=== PATIENT | male | born 1970 | race Caucasian/White ===

== ENCOUNTER 2018-02-06 18:37 | Emergency (ER) | payer BC ==
[~2018-02-06] VITALS: Ht 170.2 cm; Wt 82.6 kg
[~2018-02-06 18:37] MED LIST: ALBUTEROL INHAL17 GM IH; AMOXICILLIN 50500 M1 PO; AVELOX400 MG PO; PHENERGAN 25 MG25 MG PO
[2018-02-06] MEDS ORDERED: EPIPEN0.3 MG/0.1 IM (20:18)
[2018-02-06] MEDS ORDERED: PREDNISONE50 MG PO (20:18)
[2018-02-06 20:36] VITALS: BP 134/70
== END 2018-02-06 20:38 | disposition home or self-care (01) ==
LOC: M.ERS 18:37
DX: T78.40XA Allergy, unspecified, initial encounter (principal); X58.XXXA Exposure to other specified factors, initial encounter

== ENCOUNTER 2018-12-06 22:12 | Inpatient (IN) | payer BC ==
[~2018-12-06] VITALS: Ht 170.2 cm; Wt 87.1 kg
[~2018-12-06 22:12] MED LIST changes: +EPIPEN0.3 MG/0.1 IM; +PREDNISONE50 MG PO
[2018-12-06] MEDS ORDERED: LIPITOR80 MG PO (22:19)
[2018-12-06] MEDS ORDERED: VALTREX 500 MG500 MG PO (22:19)
[2018-12-07 00:28] LABS: ABSOLUTE EOSINOPHILS 0.1 thou/uL (0.0-0.7); ABSOLUTE MONOCYTES 0.5 thou/uL (0.0-1.2); ABSOLUTE NEUTROPHILS 8.2 thou/uL (1.6-8.1); BASOPHILS 0.4 %; EOSINOPHILS 0.5 %; HEMATOCRIT 46.7 % (42.0-52.0); HEMOGLOBIN 16.2 gm/dL (14.0-18.0); LYMPHOCYTES 18.7 %; MCH 32.5 pg (26.0-34.0); MCHC 34.6 g/dL (28.0-37.0); MCV 93.9 fL (80.0-100.0); MONOCYTES 4.3 %; MPV 6.7 fl. (7.2-11.1); NUCLEATED RBCS 0 /100WBC; PLATELET COUNT* 229 thou/uL (150-400); POLYS 76.1 %; RBC 4.97 mil/uL (4.50-6.00); RDW-CV 12.5 % (10.5-14.5); WBC 10.8 thou/uL (4.0-11.0)
[2018-12-07 00:38] LABS: ALBUMIN 3.9 g/dL (3.4-5.0); CALCIUM 8.7 mg/dL (8.5-10.1); POTASSIUM 3.5 mmol/L (3.5-5.1); TOTAL BILIRUBIN 0.7 mg/dL (<0.1-1.0); TOTAL PROTEIN 7.2 g/dL (6.4-8.2)
[2018-12-07 00:45] VITALS: BP 133/84
[2018-12-07 00:59] VITALS: BP 127/73
[2018-12-07 08:15] VITALS: BP 131/87
[2018-12-07 10:57] VITALS: BP 131/87
--- NOTE | 2018-12-07 17:05 | EKG ---
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 SERRANO : 1970 Requested By: Iza Sorto Order Number: [id number] MD: Ed Hendrix Measurements Intervals [place] Rate: 60 P: 1 IN: 148 QRS: -20 QRSD: 86 T: -9 QT: 408 QTc: 408 Interpretive Statements Sinus rhythm Borderline left axis deviation Low voltage, precordial leads Borderline T abnormalities, inferior leads No previous ECG available for comparison Electronically Signed On 12-07-2018 17:05:34 CDT by Ed Hendrix [email or web address] <ELECTRONICALLY SIGNED> By: Ed Hendrix MD, [facility] 12/07/18 1705 0029 0029 Ed Hendrix MD, [facility] /EPI
[2018-12-07 17:10] VITALS: BP 151/86
[2018-12-07 21:30] VITALS: BP 125/75
[2018-12-08] VITALS (7 sets, daily range): BP systolic 118–155; BP diastolic 77–94
[2018-12-08 05:07] LABS: CALCIUM 8.3 mg/dL (8.5-10.1); MAGNESIUM 2.5 mg/dL (1.8-2.4); POTASSIUM 4.3 mmol/L (3.5-5.1)
[2018-12-08 05:28] LABS: ABSOLUTE LYMPHOCYTES 1.8 thou/uL (0.8-5.3); ABSOLUTE MONOCYTES 1.2 thou/uL (0.0-1.2); BASOPHILS 0.1 %; LYMPHOCYTES 13.1 %; MCH 32.9 pg (26.0-34.0); MCV 94.2 fL (80.0-100.0); MONOCYTES 8.3 %; MPV 7.2 fl. (7.2-11.1); NUCLEATED RBCS 0 /100WBC; PLATELET COUNT* 219 thou/uL (150-400); POLYS 78.5 %; RBC 4.25 mil/uL (4.50-6.00); RDW-CV 12.6 % (10.5-14.5); WBC 14.1 thou/uL (4.0-11.0)
[2018-12-08] MEDS ORDERED: SENNA PLUS TAB1 EACH PO (14:09)
[2018-12-08] MEDS ORDERED: ELIQUIS2.5 MG PO (14:40)
[2018-12-08] MEDS ORDERED: OXYCODONE HCL 55 MG PO (14:40)
[2018-12-08] MEDS ORDERED: NORCO 5-325 TA1 EACH PO (14:41)
--- NOTE | 2018-12-09 12:50 | OP ---
[address] [address] OPERATIVE REPORT Name: REGINA REEVES Nabila Room: [address]#: [id number] Admission: 12/06/18 Attend Phys: Neida Du Discharge: 12/08/18 Date of : 68 Report #: [id number] THIS REPORT FOR: //name// CC: Medardo Hunter DICTATED BY: Davidson Mar DO DATE OF SERVICE: 12/07/2018 PREOPERATIVE DIAGNOSES: Left closed distal third tibia fracture, proximal fibula fracture, Maisonneuve. POSTOPERATIVE DIAGNOSES: Left closed distal third tibia fracture, proximal fibula fracture, [place]. PROCEDURE PERFORMED: 1. Closed reduction and intramedullary nail of left tibia. 2. Physician directed fluoroscopy less than 1 hour. SURGEON: Jose Miguel Palomares DO. DIRECTOR OF PHYSICIAN PRACTICES: 1. Davidson Mar DO. 2. Baltazar Toth DO. ANESTHESIA: General and local. ESTIMATED BLOOD LOSS: 75 mL. SPECIMENS: None. COMPLICATIONS: None. ANTIBIOTICS: 2 grams Ancef IV piggyback. DISPOSITION: Stable to PACU. INDICATIONS FOR PROCEDURE: The patient is a pleasant 48-year-old male who sustained a ground level fall twisting type injury on 12/06/2018 with pain and deformity of the left lower extremity. He was seen in the Emergency Department. X-rays confirmed a distal third spiral tibia fracture with associated proximal fibula fracture that was Maisonneuve variant. Risks, benefits, complications, alternatives and indications were discussed with the patient including but are not limited to risk of infection, need for repeat surgery, nonunion, malunion, risk to nerves and vessels, continued pain, stiffness, DVT, pulmonary embolism, [address] [address] OPERATIVE REPORT Name: REGINA REEVES Room: [address]#: [id number] Admission: 12/06/18 Attend Phys: Neida Du Discharge: 12/08/18 Date of : 68 Report #: [id number] as well as other imponderables. He voiced understanding and wished to proceed. DESCRIPTION OF PROCEDURE: The patient was seen in the preoperative holding area. Correct operative site was marked. Verbal and written consents were obtained. He was transferred to the operative suite and placed supine on the operative table, given benefit of general anesthesia by the anesthesia team. Left lower extremity was then prepped and draped in normal sterile fashion. Timeout was performed and all those in attendance were agreed on correct operative site, procedure to be performed. A #10 blade scalpel was used to make an incision in the superior pole of the patella approximately 6 cm in length. This was taken down to the level of the quadriceps tendon and then a new #10 blade scalpel was used to make a longitudinal incision in the quadriceps tendon. We then inserted the intra-articular guide appropriately and our starting pin position was verified with fluoroscopy. Starting pin was passed followed by opening reamer. We then passed our ball-tipped guidewire and performed a closed reduction of the fracture and then reamed 0.5 mm intervals starting from 9 mm to 12 mm. We appropriately measured the length and size of our nail and then a [place] tibial nail size 10 mm x 330 mm was placed and malleted into place in the appropriate depth. We then used the proximal aiming arm to place our 2 proximal static locking screws. We then turned our attention to our distal screws and using perfect circles under the physician-directed fluoroscopy, we performed our distal locking screws. A #15 blade scalpel was used to incise the skin from medial to lateral screw as well as an anterior and posterior screw and blunt dissection was taken to the level of bone with a hemostat and then these were drilled with the assistance of fluoroscopy. Appropriate depth was measured and appropriate length screws were placed and final x-rays were taken and saved to the chart. All incision sites were thoroughly irrigated with sterile saline and the aiming guide was removed from the nail. We then placed a 10 mm locking cap proximally and thoroughly irrigated the knee joint with sterile saline. The quadriceps tendon was closed using 0 Vicryl in a ygudby-dn-ywqka fashion. Skin was closed using 2-0 Vicryl in an inverted fashion, and then skin jethro were used to close all incisions. All needle and sharp counts were correct at the end of the case x 2. I attest Dr. Palomares was present throughout all critical decision making aspects of the case. POSTOPERATIVE PLAN: The patient will be toe touch weightbearing of the left lower extremity until followup in 2 weeks. He will receive DVT prophylaxis of Eliquis 2.5 mg p.o. b.i.d. as well as p.o. analgesia [place] [address] OPERATIVE REPORT Name: REGINA REEVES Room: [address] [place]#: [id number] Admission: 12/06/18 Attend Phys: Neida Du Discharge: 12/08/18 Date of : 68 Report #: [id number] receive physical therapy for crutch or walker training as needed and postoperative weight-based antibiotics. <ELECTRONICALLY SIGNED> By: Joseph Orellana DO 12/09/18 1250 1627 1840Jose Miguel Palomares DO /nt
== END 2018-12-08 16:30 | disposition home or self-care (01) | DRG 494 ==
LOC: M.ERS 22:12 → M.ORTHSURG 23:45 → M.TBA-ER 23:45 → M.ORTHSURG 12-07 00:45
PROVIDERS: Family Medicine; Personal Emergency Response Attendant; ADMIT Internal Medicine
PROC: 0QSH36Z Reposition Left Tibia with Intramedullary Internal Fixation Device, Percutaneous Approach (ICD-10-PCS; principal; 2018-12-07)
DX: S82.862A Displaced Maisonneuve's fracture of left leg, initial encounter for closed fracture (principal); E78.5 Hyperlipidemia, unspecified; F17.290 Nicotine dependence, other tobacco product, uncomplicated; W01.0XXA Fall on same level from slipping, tripping and stumbling without subsequent striking against object, initial encounter; Y93.89 Activity, other specified; Y92.89 Other specified places as the place of occurrence of the external cause; Y99.8 Other external cause status